=== PATIENT | male | born 1985 | race Caucasian/White ===

== ENCOUNTER 2017-01-26 15:39 | Emergency (ER) | payer SELFPAY ==
--- NOTE | 2017-01-26 15:55 | ED Physician Documentation ---
General Adult - HISTORIAN Historian: patient - HPI Stated Complaint: chest pain Chief Complaint: Chest Pain Onset: other (1 week ) Timing: still present Severity: moderate Further Comments: yes (states that about one week ago he noted that he had pain on the right side of his chest and he has had the same pain and notes when he lays down flat the pain is increased. Denies any nausea or diaphoresis. He states he has been told in the past he had an ulcer and he also notes that he was told once years ago he had "fluid around my heart" he states he was placed on b/p meds but he did stop taking the meds a few years ago b/c he felt the b/p was normal . He states the pain is increased with touch. He denies any injury to the area) - ROS CONST: denies: fever, sweating, recent illness EYES/ENT: denies: sore throat CVS/RESP: chest pain (right sided ). denies: shortness of breath, cough GI/: abdominal pain (epigastric area (devated to the right chest/abdomen) ). denies: vomiting, nausea, diarrhea MS/SKIN/LYMPH: none. denies: rash NEURO/PSYCH: denies: headache - PAST HX Past History: other (HTN ) Other History: none Surgeries/Procedures: none Immunizations: referred to PCP Allergies/Adverse Reactions: Allergies Allergy/AdvReac Type Severity Reaction Status Date / Time No Known Allergies Allergy Verified 01/26/17 15:56 Home Medications: Ambulatory Orders Medication Instructions Recorded Omeprazole [Prilosec] 40 mg PO D #15 capsule. 01/26/17 - SOCIAL HX Smoking History: cigarettes Alcohol Use: none Drug Use: none - FAMILY HX Family History: No - VITAL SIGNS Vital Signs: Vital Signs Temp Pulse Resp BP Pulse Ox 151/99 06/09/15 15:43 - REVIEWED ASSESSMENTS Nursing Assessment Reviewed: Yes Vitals Reviewed: Yes Progress - Progress Progress: 1725: states to pain he has the same. No increased pain. States maybe pain is "3 " on 1/10 scale. DG ED Results Lab/Radiology - Radiology Radiology Impressions: Examination: PA and lateral chest. History: Evaluate lung jordan. Comparison exam: None provided Findings: PA lateral chest demonstrate a normal cardiac and mediastinal silhouette. Elevated right hemidiaphragm. No focal infiltrate. No blunting of the costophrenic margins. Osseous structures are appropriate for age. Impression: No acute pulmonary process. Electronically signed on Jan 26, 2017 4:59:09 PM PEDIATRIC GENETIC COUNSELOR by: Jalil Saleem Examination: CT Abdomen/pelvis History: Epigastric discomfort. Comparison exams: None available Technique: CT Abdomen/pelvis without contrast protocol. Findings: Liver demonstrates diffuse low attenuation. No central lesion. Spleen , adrenal glands, kidneys, pancreas and gallbladder are without irregularity given exam technique. No gallstones. No suspicious renal calcifications. Ureters are nondilated in their course through the abdomen and pelvis. No central calcification. Bladder margin within normal limits. Abdominal aorta without aneurysm or peripheral atherosclerotic disease. Cardiac silhouette not enlarged. No pericardial effusion. Bowel without contrast limiting evaluation. No evidence for acute mesenteric inflammation or free air. Stool throughout the large bowel limiting sensitivity. Appendix is visualized and is within normal limits. Few early sigmoid diverticula. No adjacent inflammation. Osseous structures are appropriate for age. Lung bases demonstrate mild scarring. No consolidation. No effusion. Impression: No acute appearing abdominal inflammatory process. No gallstone. No suspicious renal calcifications or abnormal ureteric dilation. Mild fatty infiltration liver. Few early sigmoid diverticula. Minimal lung base scarring. No consolidation or effusion. Electronically signed on Jan 26, 2017 5:58:52 PM PEDIATRIC GENETIC COUNSELOR by: Jalil Saleem General Adult Physical Exam - PHYSICAL EXAM GENERAL APPEARANCE: no distress NECK: normal inspection RESPIRATORY: no resp distress, chest non-tender, wheezes (expiratory ) CVS: reg rate & rhythm, heart sounds normal, equal pulses, no murmur ABDOMEN: soft, normal bowel sounds, other (mild tenderness with palpation epigastric to RUQ) SKIN: warm/dry, normal color EXTREMITIES: non-tender, normal range of motion, no evidence of injury, no edema NEURO: oriented X3, CN's nml as tested, motor nml, sensation nml, mood/affect nml Discharge Clincal Impression: Abdominal pain Qualifiers: Abdominal location: right upper quadrant Qualified Code(s): R10.11 - Right upper quadrant pain Prescriptions: Omeprazole [Prilosec] 40 mg PO D #15 capsule. Referrals: Primary Doctor,No [Primary Care Provider] - 2 Days Disposition: 01 HOME, SELF-CARE Decision to Admit: NO Date of Decison to Admit: 01/26/17 Decision Time: 18:09
[2017-01-26] MEDS: ASPIRIN 81 MG CHEW TAB PO ONE (16:05)
[2017-01-26 16:22] LABS: BASOPHILS % 0.6 (0.0-1.5); EOSINOPHILS % 2.1 % (0.0-6.8); MEAN CORPUSCULAR HEMOGLOBIN 28.3 pg (28.0-34.0); MONOCYTES % 4.2 % (0.0-11.0); NEUTROPHILS # 11.6 # k/uL (1.4-7.7)
[2017-01-26 16:30] LABS: eGFR (African) > 60; eGFR (Non-African) > 60
--- NOTE | 2017-01-26 17:55 | Diagnostic Imaging Report ---
JR DICKINSON~ [facility] [address] [facility] [place] [facility] [address], [place]. [address] ~ ~ ~ ~ Report Submission Date: Jan 26, 2017 4:59:09 PM DESIGN CONSULTANT Patient ~ Study Name: KOURTNEY SHANE ~ Date: Jan 26, 2017 4:37:50 PM DESIGN CONSULTANT ~ Modality Type: CR Gender: M ~ Description: CHEST : 81 ~ Institution: [facility] Physician: JR DICKINSON ~ ~ ~ Examination: PA and lateral chest. History: Evaluate lung jordan. Comparison exam: None provided Findings: PA lateral chest demonstrate a normal cardiac and mediastinal silhouette. Elevated right hemidiaphragm. No focal infiltrate.~ No blunting of the costophrenic margins.~ Osseous structures are appropriate for age. Impression: No acute pulmonary process. ~ Electronically signed on Jan 26, 2017 4:59:09 PM DESIGN CONSULTANT by: Jalil NARAYANAN
--- NOTE | 2017-01-26 18:03 | Diagnostic Imaging Report ---
Name: KOURTNEY SHANE ~~ ~~ : 81 ~~ Acc #: [id number]~~ DOS: Jan 26, 2017 5:13:39 PM PARENT EDUCATOR ~~ Mod: CT\SR ~~ Desc: CT ABD W/O CONTRAST 2 of 2 JR DICKINSON~ [address] [place] [address]. [id number] ~ ~ ~ ~ Report Submission Date: Jan 26, 2017 5:58:52 PM PARENT EDUCATOR Patient ~ Study Name: KOURTNEY SHANE ~ Date: Jan 26, 2017 5:13:39 PM PARENT EDUCATOR ~ Modality Type: CT\SR Gender: M ~ Description: CT ABD W/O CONTRAST : 81 ~ Institution: [facility] Physician: JR DICKINSON ~ ~ ~ Examination: CT Abdomen/pelvis History: Epigastric discomfort. Comparison exams: None available Technique: CT Abdomen/pelvis without contrast protocol.~ Findings: Liver demonstrates diffuse low attenuation. No central lesion. Spleen , adrenal glands, kidneys, pancreas and gallbladder are without irregularity given exam technique. No gallstones. No suspicious renal calcifications. Ureters are nondilated in their course through the abdomen and pelvis. No central calcification. Bladder margin within normal limits. ~ Abdominal aorta without aneurysm or peripheral atherosclerotic disease. Cardiac silhouette not enlarged. No pericardial effusion. Bowel without contrast limiting evaluation. No evidence for acute mesenteric inflammation or free air. Stool throughout the large bowel limiting sensitivity. Appendix is visualized and is within normal limits. Few early sigmoid diverticula. No adjacent inflammation. Osseous structures are appropriate for age. Lung bases demonstrate mild scarring. No consolidation. No effusion. Impression: No acute appearing abdominal inflammatory process. No gallstone. No suspicious renal calcifications or abnormal ureteric dilation. Mild fatty infiltration liver. Few early sigmoid diverticula. Minimal lung base scarring. No consolidation or effusion. ~ Electronically signed on Jan 26, 2017 5:58:52 PM PARENT EDUCATOR by: Jalil NARAYANAN
[2017-01-26 18:27] VITALS: BP 132/79
== END 2017-01-26 18:26 | disposition home or self-care (01) ==
LOC: ED 15:39
DX: R10.11 Right upper quadrant pain (principal)
CPT/HCPCS: 71020; 74176; 80053; 82550; 84484; 85025; 85379; 99283; S1016

== ENCOUNTER 2017-09-30 23:30 | Emergency (ER) | payer SELFPAY ==
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
[2017-10-01 04:12] VITALS: BP 99/73
== END 2017-10-01 00:20 | disposition home or self-care (01) ==
LOC: ED 23:30
DX: F41.9 Anxiety disorder, unspecified (principal); F40.01 Agoraphobia with panic disorder; F40.240 Claustrophobia
CPT/HCPCS: 99282